=== PATIENT | male | born 1965 | race Caucasian/White ===

== ENCOUNTER 2022-08-13 05:41 | Inpatient (IN) | payer OTHER ==
[~2022-08-13] VITALS: Ht 180.3 cm; Wt 129.7 kg
[~2022-08-13 05:41] MED LIST: ANESTHESIA TRAY IN PYXIS 1 EA TRAY MC ONE
--- NOTE | 2022-08-13 05:45 | NUR ---
RN NOTES RECEIVED PT IN DAY SURGERY, PT IS A/Ox4, ON RA, RESPIRATION EVEN AND UNLABORED, PT NPO SINCE LAST NIGHT FOR LEFT TOTAL KNEE ARTHROPLASTY, SUPPORT AT THE BEDSIDE, IV SITE INSERTED ON LEFT HAND G 20 , VSS STABLE, CONTINUE TO GET PT READY FOR SURGERY THIS AM .
[2022-08-13 06:00] VITALS: BP 146/87
[2022-08-13] MEDS ORDERED: FENTANYL PF 250MCG/5ML AMPUL ONE (07:00)
[2022-08-13] MEDS ORDERED: HYDROMORPHONE INJ 2 MG/ML DISP.SYRIN ONE (07:00)
[2022-08-13] MEDS ORDERED: MIDAZOLAM HCL 2 MG/2ML VIAL ONE (07:01)
[2022-08-13] MEDS ORDERED: FAMOTIDINE/PF INJ 20 MG/2 ML VIAL IV ONE (07:01)
[2022-08-13] MEDS ORDERED: ROCURONIUM BROMIDE 50 MG/5 ML ONE (07:02)
--- NOTE | 2022-08-13 07:03 | NUR ---
RN NOTES PT TO PRE-OP AT THIS TIME
[2022-08-13] MEDS ORDERED: BUPIVACAINE 0.5 % PF 150 MG/30 ML VIAL ONE (07:14)
[2022-08-13] MEDS ORDERED: BUPIVACAINE 0.25% 75 MG/30 ML VIAL ONE (07:14)
[2022-08-13] MEDS ORDERED: TRANEXAMIC ACID 3,000 MG in SODIUM CHLORIDE IRRIG SOLUTION 70 ML IR ONE (07:30)
[2022-08-13] MEDS ORDERED: POLYMYXIN B SULFATE 500,000 UNITS ONE (08:17)
[2022-08-13] MEDS ORDERED: HYDROMORPHONE 1 MG/1 ML DISP.SYRIN SQ PRN (10:00)
[2022-08-13] MEDS ORDERED: HYDROCODONE/APAP 10/325MG TABLET PO PRN (10:00)
[2022-08-13] MEDS ORDERED: HYDROMORPHONE 1 MG/1 ML DISP.SYRIN ONE (11:02)
[2022-08-13] MEDS ORDERED: SENNOSIDES 8.6 MG TABLET PO PRN (11:30)
[2022-08-13] MEDS ORDERED: BISACODYL SUPP (10 MG) 10 MG/SUPP.RECT SUPP.RECT RC PRN (11:30)
[2022-08-13] MEDS ORDERED: ONDANSETRON HCL/PF 4 MG/2 ML VIAL IV PRN (11:30)
[2022-08-13] MEDS ORDERED: FENTANYL PF 100MCG/2ML AMPUL ONE (11:36)
[2022-08-13] MEDS ORDERED: DOCUSATE SODIUM 250 MG CAPSULE PO PRN (12:00)
--- NOTE | 2022-08-13 12:05 | NUR ---
DIRECTOR OF EDUCATIONDOUBLING MACHINE OPERATOR NOTES: RECEIVED PT AWAKE FROM OR STAFF SURAJ, S/P L KNEE ARTHROPLASTY. SURGICAL SITE DRESSING C/D/I. PT AO/X4, ABLE TO MAKE NEEDS KNOWS. ON 2L O2 VIA NS. VITALS WNL, BP-127/77, TEMP- 98.4, HR 100, O2 SAT -96%. NO S/S OF SOB OR ACUTE DISTRESS AT THE MOMENT. C/O PAIN 07/11, WILL MEDICATE PER MD ORDER. IV ACCESS @ R HAND # 18 RUNNING NS @ 100ML/HR. ORIENTED PT TO UNIT AND STAFF. SAFETY MEASURES IN PLACE, CALL LIGHT WITHIN REACH, ENCOURAGED PT TO USE CALL LIGHT FOR ASSISTANCE; WILL CONT TO ASSESS PT THROUGHOUT SHIFT.
[2022-08-13] MEDS: HYDROMORPHONE 1 MG/1 ML DISP.SYRIN IV PRN ×4 (12:27→21:37)
[2022-08-13] MEDS ORDERED: EMPA25TA PO (12:41)
[2022-08-13] MEDS ORDERED: LISI10TA29 PO (12:41)
[2022-08-13] MEDS ORDERED: METF-442 PO (12:41)
[2022-08-13] MEDS ORDERED: ROSU20TA32 PO (12:41)
[2022-08-13] MEDS ORDERED: NALOXONE HCL 0.4 MG/ML AMPUL IV PRN (13:30)
[2022-08-13] MEDS ORDERED: CLONIDINE HCL 0.1 MG TABLET PO PRN (13:30)
[2022-08-13] MEDS ORDERED: diphenhydrAMINE HCL 25 MG CAPSULE PO PRN (13:30)
[2022-08-13] MEDS ORDERED: MAGNESIUM HYDROXIDE 30 ML UDC PO PRN (13:30)
[2022-08-13] MEDS ORDERED: MAG HYDROX/AL HYDROX/SIMETH 30 ML UDC PO PRN (13:30)
[2022-08-13] MEDS ORDERED: MENTHOL/CETYLPYRD (CEPACOL) 1 LOZ LOZENGE MM PRN (13:30)
[2022-08-13 13:31] VITALS: BP 127/77
[2022-08-13] MEDS: IV NS 0.9% 1,000 ML IV PRN (14:14)
[2022-08-13] MEDS: ONDANSETRON HCL/PF 4 MG/2 ML VIAL IVP PRN (15:59)
[2022-08-13] MEDS ORDERED: DEXTROSE 50%-WATER 50 ML DISP.SYRIN IV PRN (16:00)
[2022-08-13] MEDS ORDERED: *INSULIN REGULAR(HUMULIN R)HUM 100 UNIT/ML VIAL SQ PRN (16:00)
[2022-08-13 16:34] LABS: CREATININE 0.8 mg/dL (0.6-1.3); POTASSIUM 5.2 mmol/L (3.5-5.1)
[2022-08-13] MEDS: LISINOPRIL (10MG) 10 MG TABLET PO SCH (17:00)
[2022-08-13 17:56] VITALS: BP 122/73
[2022-08-13] MEDS: ANCEF 1 GM/50 ML D5W IV SCH ×2 (18:07)
[2022-08-13] MEDS: DOCUSATE SODIUM 100 MG CAPSULE PO SCH (18:07)
[2022-08-13] MEDS: ATORVASTATIN 40 MG TABLET PO SCH (18:07)
[2022-08-13] MEDS: BLOOD SUGAR DIAGNOSTIC 1 EACH STRIP VI SCH ×2 (18:49→22:56)
[2022-08-13] MEDS: INSULIN REGULAR, HUMAN 100 UNIT/ML 3 ML VIAL SQ PRN (18:51)
--- NOTE | 2022-08-13 19:56 | NUR ---
RN OPENING NOTE PATIENT ASLEEP IN BED. A/OX4. NO S/S OF DISTRESS, BREATHING WITHOUT DIFFICULTY ON ROOM AIR. R-HAND #18 INTACT AND PATENT W/ NS 100ML/HR. SAFETY MEASURES IN PLACE: BED AT LOWEST POSITION & LOCKED, RAILS UP X2, CALL CULVER WITHIN REACH. WILL CONTINUE TO MONITOR PATIENT.
[2022-08-13 20:00] VITALS: BP 120/62
--- NOTE | 2022-08-13 20:16 | NUR ---
MS RN CLOSING NOTES: PT ASLEEP, AO/X4, ABLE TO MAKE NEEDS KNOWS. NO S/S OF ACUTE DISTRESS AND SOB AT THE MOMENT, ON 2L O2 VIA NC. IV ACCESS @ R HAND # 18 RUNNING NS @ 100ML/HR. DUE MEDICATIONS GIVEN, NEEDS MET AT THIS TIME. SAFETY MEASURES IN PLACE, CALL LIGHT, TABLE AND URINAL WITHIN REACH, ENDORSED TO PM SHIFT.
[2022-08-13] MEDS: METOCLOPRAMIDE HCL 10 MG/2 ML VIAL IV SCH (21:29)
[2022-08-13] MEDS: FAMOTIDINE (20 MG) 20 MG TABLET PO SCH (21:29)
[2022-08-14] MEDS: ANCEF 1 GM/50 ML D5W IV SCH ×2 (00:38)
[2022-08-14] MEDS: HYDROMORPHONE 1 MG/1 ML DISP.SYRIN IV PRN ×7 (01:38→18:02)
[2022-08-14] MEDS: METOCLOPRAMIDE HCL 10 MG/2 ML VIAL IV SCH ×2 (04:30→13:00)
[2022-08-14] MEDS: IV NS 0.9% 1,000 ML IV PRN (05:23)
[2022-08-14 06:08] LABS: BASOPHILS % (AUTO) 0.4 % (0.0-2.0); EOSINOPHILS % (AUTO) 0.2 % (0.0-6.0); HEMATOCRIT 44 % (39-51); HEMOGLOBIN 14.9 g/dL (13.5-17.5); LYMPHOCYTES # (AUTO) 0.6 K/uL (0.8-4.8); LYMPHOCYTES % (AUTO) 7.3 % (20.0-44.0); MEAN CORPUSCULAR HGB CONC 34 g/dl (31.0-36.0); MEAN CORPUSCULAR VOLUME 87 fL (80-96); MONOCYTES # (AUTO) 0.7 K/uL (0.1-1.30); MONOCYTES % (AUTO) 8.2 % (2.0-12.0); NEUTROPHILS # (AUTO) 6.9 K/uL (1.8-8.9); NEUTROPHILS % (AUTO) 83.9 % (43.0-81.0); PLATELET COUNT (AUTO) 138 K/uL (150-450); RED BLOOD CELL COUNT(AUTO) 5.09 MIL/uL (4.5-6.0); WHITE BLOOD COUNT (AUTO) 8.3 K/uL (4.3-11.0)
--- NOTE | 2022-08-14 06:37 | NUR ---
RN CLOSING NOTE PATIENT ASLEEP IN BED. A/OX4. NO S/S OF DISTRESS, BREATHING WITHOUT DIFFICULTY ON ROOM AIR. R-HAND #18 INTACT AND PATENT W/ NS 100ML/HR. SAFETY MEASURES IN PLACE: BED LOCKED AND AT LOWEST POSITION, RAILS UP X2, CALL CULVER WITHIN REACH. WILL ENDORSE TO NEXT SHIFT FOR CARLA.
[2022-08-14] MEDS: INSULIN REGULAR, HUMAN 100 UNIT/ML 3 ML VIAL SQ PRN ×3 (06:46→17:12)
[2022-08-14] MEDS: BLOOD SUGAR DIAGNOSTIC 1 EACH STRIP VI SCH ×3 (06:46→18:46)
[2022-08-14 07:10] LABS: CALCIUM, SERUM 8.9 mg/dL (8.5-10.1); CREATININE 0.9 mg/dL (0.6-1.3); PHOSPHORUS 3.5 mg/dL (2.5-4.9); POTASSIUM 4.3 mmol/L (3.5-5.1)
--- NOTE | 2022-08-14 07:42 | NUR ---
MS RN NOTES: RECEIVED PT AWAKE; PT AO/X4, ABLE TO MAKE NEEDS KNOWS. ON RA TOLERATING WELL. NO S/S OF SOB AT THE MOMENT. C/O PAIN 07/11, WILL MEDICATE PER MD ORDER. IV ACCESS @ R HAND # 18 RUNNING NS @ 100ML/HR. SAFETY MEASURES IN PLACE, CALL LIGHT, TABLE AND URINAL WITHIN REACH, ENCOURAGED PT TO USE CALL LIGHT FOR ASSISTANCE; WILL CONTINUE WILL PLAN OF CARE DURING SHIFT.
[2022-08-14 08:00] VITALS: BP 148/104
[2022-08-14] MEDS ORDERED: RIVAROXABAN 10 MG TABLET PO SCH (09:00)
[2022-08-14] MEDS ORDERED: TAMSULOSIN 0.4 MG CAP.SR.24H PO SCH (09:00)
[2022-08-14] MEDS ORDERED: METFORMIN 500 MG TABLET PO SCH (09:00)
[2022-08-14] MEDS ORDERED: EMPAGLIFLOZIN 25 MG TABLET PO SCH (09:00)
[2022-08-14] MEDS: ONDANSETRON HCL/PF 4 MG/2 ML VIAL IVP PRN ×2 (09:57→18:01)
[2022-08-14] MEDS: FAMOTIDINE (20 MG) 20 MG TABLET PO SCH (09:58)
[2022-08-14] MEDS: DOCUSATE SODIUM 100 MG CAPSULE PO SCH ×2 (10:04→17:08)
[2022-08-14] MEDS: LISINOPRIL (10MG) 10 MG TABLET PO SCH ×2 (10:07→17:10)
[2022-08-14] MEDS ORDERED: RIVA10TA PO (10:27)
[2022-08-14] MEDS ORDERED: HYDR-3980 PO (10:27)
[2022-08-14] MEDS ORDERED: DOCU100C36 PO (10:27)
[2022-08-14] MEDS ORDERED: Tamsulosin PO (10:27)
[2022-08-14] MEDS ORDERED: FAMO20TA80 PO (10:27)
[2022-08-14] MEDS ORDERED: SENN-175 PO (10:27)
[2022-08-14] MEDS ORDERED: LISINOPRIL (10MG) 10 MG TABLET PO SCH (11:00)
[2022-08-14] MEDS ORDERED: ACETAMINOPHEN 325 MG TABLET PO PRN (13:30)
[2022-08-14 16:00] VITALS: BP 135/75
[2022-08-14 17:10] VITALS: BP 128/86
[2022-08-14] MEDS: ATORVASTATIN 40 MG TABLET PO SCH (18:45)
--- NOTE | 2022-08-14 19:34 | NUR ---
MS SHIFT MANAGER NOTES: PT STABLE UPON DISCHARGE, VITALS WNL. BELONGINGS CHECKLIST, DC INSTRUCTIONS AND NEW PRESCRIPTIONS DISCUSSED WITH PT AND SIGNED BY PT AND RN. ALL DUE MEDICATIONS GIVEN. SPOUSE HELPED PATIENT GET DRESSED. ADVISED TO FOLLOW UP WITH [employer] [employer] FOR CPM AND HOME PHARMACY FOR RX, VERBALIZED UNDERSTANDING. IV ACCESS AND ID BAND REMOVED. PT ESCORTED TO LOBBY BY STAFF VIA WHEELCHAIR @ 1900, USED PRIVATE CAR TRANSPORTATION.
== END 2022-08-14 19:35 | disposition home or self-care (01) | DRG 470 ==
LOC: DS 05:41 → MED 12:11
PROVIDERS: ADMIT Student in an Organized Health Care Education/Training Program; ATTEND Nurse Practitioner Acute Care
PROC: 0SRD0JZ Replacement of Left Knee Joint with Synthetic Substitute, Open Approach (ICD-10-PCS; principal; 2022-08-13)
DX: M17.12 Unilateral primary osteoarthritis, left knee (principal); E11.9 Type 2 diabetes mellitus without complications; I10 Essential (primary) hypertension; E66.9 Obesity, unspecified; E78.5 Hyperlipidemia, unspecified; F41.9 Anxiety disorder, unspecified; Z68.39 Body mass index [BMI] 39.0-39.9, adult; Z96.612 Presence of left artificial shoulder joint; Z82.49 Family history of ischemic heart disease and other diseases of the circulatory system; Z79.899 Other long term (current) drug therapy; Z79.84 Long term (current) use of oral hypoglycemic drugs
CPT/HCPCS: 36415; 73564-TC; 80048-TC; 82962-TC; 83735-TC; 84100-TC; 85025-TC; 87081-TC; 97116-TC; 97530-TC; A4217; A6209; C1713; C1776; G0378; J0690; J1100; J1170; J1815; J2250; J2405; J2704; J2765; J3010; J3490; J7030; J7060; L1830